=== PATIENT | female | born 1970 | race African-American/Black ===

== ENCOUNTER 2019-10-10 13:13 | Inpatient (IN) | payer MEDICAID ==
[~2019-10-10] VITALS: Ht 170.2 cm; Wt 139.8 kg
[~2019-10-10 13:13] MED LIST: ASPI325T17 PO; CARV3.1212 PO; CLON0.1T22 PO; CLON0.2T PO; HYDR-3240 PO; HYDR10TA4 PO; HYDR12.517 PO; LISI-170 PO; METF-366 PO; QUET200T4 PO; RISP0.253 PO
[2019-10-10] MEDS ORDERED: DOCUSATE 100 MG CAPSULE PO PRN (14:00)
[2019-10-10] MEDS ORDERED: ONDANSETRON ODT 4 MG PO PRN (14:00)
[2019-10-10] MEDS ORDERED: BISACODYL 10 MG SUPP PR PRN (14:00)
[2019-10-10] MEDS ORDERED: POLYETHYLENE GLYCOL 17 GM PACKET PO PRN (14:00)
[2019-10-10] MEDS: CARVEDILOL 25 MG TABLET PO SCH (17:59)
[2019-10-10] MEDS ORDERED: DEXTROSE 50%, 50ML SYRINGE IVPush PRN (18:00)
[2019-10-10] MEDS: INSULIN LISPRO 100 UNITS/ML, PEN SQ-INSULIN SCH ×2 (18:00→20:25)
[2019-10-10] MEDS ORDERED: DEXTROSE 4 GM TAB.CHEW PO PRN (18:00)
[2019-10-10] MEDS ORDERED: GLUCAGON 1 MG IM PRN (18:00)
[2019-10-10 18:05] VITALS: BP 178/98
[2019-10-10 18:12] VITALS: BP 178/98
[2019-10-10 19:00] VITALS: BP 123/56
[2019-10-10] MEDS ORDERED: ALBUTEROL SULFATE 2.5 MG/3 ML NPPB PRN (19:30)
[2019-10-10 20:06] LABS: BASOPHILS # (AUTO) 0.03 x10^3/uL (0-0.1); BASOPHILS % (AUTO) 1 % (0-1); EOSINOPHILS # (AUTO) 0.12 x10^3/uL (0-0.4); EOSINOPHILS % (AUTO) 2 % (1-7); LYMPHOCYTES # (AUTO) 1.01 x10^3/uL (1-3.4); LYMPHOCYTES % (AUTO) 18 % (22-44); MD NO; MEAN CORPUSCULAR HEMOGLOBIN 29.9 pg (27.0-34.8); MEAN CORPUSCULAR HGB CONC 32.9 g/dL (32.4-35.8); MEAN PLATELET VOLUME 9.3 fL (7.4-10.4); MONOCYTES # (AUTO) 0.46 x10^3/uL (0.2-0.8); MONOCYTES % (AUTO) 8 % (2-9); NEUTROPHILS # (AUTO) 3.94 x10^3/uL (1.8-6.8); NEUTROPHILS % (AUTO) 71 % (42-75); PLATELET COUNT 274 x10^3/uL (130-400); RED CELL DISTRIBUTION WIDTH 15.9 % (9.6-15.2)
[2019-10-10 20:19] LABS: ANION GAP 7 mmol/L (5-15); CALCIUM 9.2 mg/dL (8.5-10.1); CHLORIDE 105 mmol/L (98-107); CHOLESTEROL, TOTAL 181 mg/dL (140-239); CREATININE 1.21 mg/dL (0.55-1.02)
[2019-10-10] MEDS: OXCARBAZEPINE 150 MG TABLET PO SCH (20:24)
[2019-10-10] MEDS: QUETIAPINE 25MG TABLET PO SCH (20:24)
[2019-10-10] MEDS: DULOXETINE 30 MG CAPSULE.DR PO SCH (20:24)
[2019-10-10] MEDS: NITROFURANTOIN (MACROBID) 100 MG CAPSULE PO SCH (20:24)
[2019-10-10] MEDS: metFORMIN 500 MG TABLET PO SCH (20:24)
[2019-10-10] MEDS: ATORVASTATIN 80 MG TABLET PO SCH (20:24)
[2019-10-10] MEDS: PRAZOSIN 2 MG CAPSULE PO SCH (20:24)
[2019-10-10] MEDS: ALPRazolam 1MG TAB PO SCH (20:25)
[2019-10-10] MEDS: INSULIN GLARGINE 100 UNITS/ML, PEN SQ-INSULIN SCH (20:26)
[2019-10-10 20:45] LABS: FREE T4 (FREE THYROXINE) 1.07 ng/dL (0.76-1.46); HDL CHOL % 17 % (28-40); HDL CHOLESTEROL (DIRECT) 30 mg/dL (40-60); LDL CHOLESTEROL,CALCULATED 111 mg/dL (54-169); LDL/HDL RATIO 3.7 (0.5-3.0); TRIGLYCERIDES 202 mg/dL (50-200); VLDL CHOLESTEROL 40 mg/dL (0-25)
[2019-10-10] MEDS: SODIUM CHLORIDE FLUSH 10ML SYR IVF SCH (21:00)
[2019-10-10] MEDS ORDERED: LURASIDONE 20 MG TABLET PO SCH (21:00)
[2019-10-11] MEDS: ASPIRIN 81 MG TABLET EC PO SCH (05:56)
[2019-10-11 07:06] VITALS: BP 123/77
[2019-10-11] MEDS ORDERED: CARVEDILOL 12.5 MG TABLET ONE (08:03)
[2019-10-11] MEDS: NITROFURANTOIN (MACROBID) 100 MG CAPSULE PO SCH ×2 (08:07→21:10)
[2019-10-11] MEDS: INSULIN LISPRO 100 UNITS/ML, PEN SQ-INSULIN SCH ×4 (08:07→21:09)
[2019-10-11] MEDS: SPIRONOLACTONE 50 MG TABLET PO SCH (08:07)
[2019-10-11] MEDS: ALPRazolam 1MG TAB PO SCH ×3 (08:08→21:06)
[2019-10-11] MEDS: metFORMIN 500 MG TABLET PO SCH ×2 (08:08→21:05)
[2019-10-11] MEDS: THIAMINE 100MG TABLET PO SCH (08:08)
[2019-10-11] MEDS: FERROUS SULFATE 325 MG TABLET PO SCH (08:08)
[2019-10-11] MEDS: CLOPIDOGREL 75 MG TABLET PO SCH (08:08)
[2019-10-11] MEDS: OXCARBAZEPINE 150 MG TABLET PO SCH ×2 (08:09→21:05)
[2019-10-11] MEDS: ASCORBIC ACID 500 MG TABLET PO SCH (08:09)
[2019-10-11] MEDS: CARVEDILOL 25 MG TABLET PO SCH ×2 (08:10→16:39)
[2019-10-11] MEDS: SODIUM CHLORIDE FLUSH 10ML SYR IVF SCH (08:16)
[2019-10-11 19:20] VITALS: BP 120/77
[2019-10-11] MEDS: ATORVASTATIN 80 MG TABLET PO SCH (21:05)
[2019-10-11] MEDS: DULOXETINE 30 MG CAPSULE.DR PO SCH (21:05)
[2019-10-11] MEDS: QUETIAPINE 25MG TABLET PO SCH (21:05)
[2019-10-11] MEDS: PRAZOSIN 2 MG CAPSULE PO SCH (21:05)
[2019-10-11] MEDS: ACETAMINOPHEN 325 MG TABLET PO PRN (21:06)
[2019-10-11] MEDS: INSULIN GLARGINE 100 UNITS/ML, PEN SQ-INSULIN SCH (21:09)
[2019-10-11] MEDS ORDERED: LOPERAMIDE 2 MG CAPSULE PO PRN (22:00)
[2019-10-11] MEDS ORDERED: HYDROcodone/APAP 5/325 TABLET ONE (22:05)
[2019-10-11] MEDS ORDERED: LOPERAMIDE 2 MG CAPSULE PO ONE (22:30)
[2019-10-12] MEDS: ASPIRIN 81 MG TABLET EC PO SCH (05:54)
[2019-10-12] MEDS: INSULIN LISPRO 100 UNITS/ML, PEN SQ-INSULIN SCH ×4 (07:00→21:02)
[2019-10-12 07:35] VITALS: BP 133/78
[2019-10-12] MEDS: ALPRazolam 1MG TAB PO SCH ×3 (08:56→20:54)
[2019-10-12] MEDS: SPIRONOLACTONE 50 MG TABLET PO SCH (08:56)
[2019-10-12] MEDS: FERROUS SULFATE 325 MG TABLET PO SCH (08:56)
[2019-10-12] MEDS: OXCARBAZEPINE 150 MG TABLET PO SCH ×2 (08:57→20:54)
[2019-10-12] MEDS: CARVEDILOL 25 MG TABLET PO SCH ×2 (08:57→16:42)
[2019-10-12] MEDS: NITROFURANTOIN (MACROBID) 100 MG CAPSULE PO SCH ×2 (08:57→20:54)
[2019-10-12] MEDS: ASCORBIC ACID 500 MG TABLET PO SCH (08:57)
[2019-10-12] MEDS: CLOPIDOGREL 75 MG TABLET PO SCH (08:57)
[2019-10-12] MEDS: THIAMINE 100MG TABLET PO SCH (09:00)
[2019-10-12] MEDS: metFORMIN 500 MG TABLET PO SCH ×2 (09:00→21:08)
[2019-10-12 19:57] VITALS: BP 143/82
[2019-10-12 20:27] LABS: MICROSCOPIC AUTO
[2019-10-12 20:31] LABS: CULTURE INDICATED? YES
[2019-10-12] MEDS ORDERED: HYDROcodone/APAP 5/325 TABLET ONE (20:46)
[2019-10-12] MEDS: PRAZOSIN 2 MG CAPSULE PO SCH (20:53)
[2019-10-12] MEDS: ATORVASTATIN 80 MG TABLET PO SCH (20:53)
[2019-10-12] MEDS: DULOXETINE 30 MG CAPSULE.DR PO SCH (20:53)
[2019-10-12] MEDS: QUETIAPINE 25MG TABLET PO SCH (20:53)
[2019-10-12] MEDS: INSULIN GLARGINE 100 UNITS/ML, PEN SQ-INSULIN SCH (21:03)
[2019-10-13] MEDS: ASPIRIN 81 MG TABLET EC PO SCH (06:07)
[2019-10-13] MEDS: ACETAMINOPHEN 325 MG TABLET PO PRN (06:26)
[2019-10-13 07:22] VITALS: BP 150/90
[2019-10-13] MEDS: INSULIN LISPRO 100 UNITS/ML, PEN SQ-INSULIN SCH ×4 (07:30→20:03)
[2019-10-13] MEDS: CARVEDILOL 25 MG TABLET PO SCH ×2 (10:28→17:13)
[2019-10-13] MEDS: SPIRONOLACTONE 50 MG TABLET PO SCH (10:29)
[2019-10-13] MEDS: metFORMIN 500 MG TABLET PO SCH ×2 (10:29→20:02)
[2019-10-13] MEDS: FERROUS SULFATE 325 MG TABLET PO SCH (10:29)
[2019-10-13] MEDS: NITROFURANTOIN (MACROBID) 100 MG CAPSULE PO SCH ×2 (10:29→20:02)
[2019-10-13] MEDS: ASCORBIC ACID 500 MG TABLET PO SCH (10:30)
[2019-10-13] MEDS: THIAMINE 100MG TABLET PO SCH (10:30)
[2019-10-13] MEDS: OXCARBAZEPINE 150 MG TABLET PO SCH ×2 (10:31→20:02)
[2019-10-13] MEDS: CLOPIDOGREL 75 MG TABLET PO SCH (10:31)
[2019-10-13] MEDS: ALPRazolam 1MG TAB PO SCH ×3 (10:32→20:01)
[2019-10-13 19:15] VITALS: BP 151/91
[2019-10-13] MEDS: ATORVASTATIN 80 MG TABLET PO SCH (20:01)
[2019-10-13] MEDS: PRAZOSIN 2 MG CAPSULE PO SCH (20:01)
[2019-10-13] MEDS: DULOXETINE 30 MG CAPSULE.DR PO SCH (20:02)
[2019-10-13] MEDS: QUETIAPINE 25MG TABLET PO SCH (20:02)
[2019-10-13] MEDS: INSULIN GLARGINE 100 UNITS/ML, PEN SQ-INSULIN SCH (20:04)
[2019-10-14] MEDS: ASPIRIN 81 MG TABLET EC PO SCH (06:01)
[2019-10-14] MEDS: INSULIN LISPRO 100 UNITS/ML, PEN SQ-INSULIN SCH ×4 (07:00→20:01)
[2019-10-14 07:21] VITALS: BP 130/75
[2019-10-14] MEDS: metFORMIN 500 MG TABLET PO SCH ×3 (09:00→20:02)
[2019-10-14] MEDS: ALPRazolam 1MG TAB PO SCH ×3 (09:09→20:03)
[2019-10-14] MEDS: CARVEDILOL 25 MG TABLET PO SCH ×2 (09:09→16:00)
[2019-10-14] MEDS: SPIRONOLACTONE 50 MG TABLET PO SCH (09:09)
[2019-10-14] MEDS: NITROFURANTOIN (MACROBID) 100 MG CAPSULE PO SCH ×2 (09:09→20:01)
[2019-10-14] MEDS: ASCORBIC ACID 500 MG TABLET PO SCH (09:09)
[2019-10-14] MEDS: CLOPIDOGREL 75 MG TABLET PO SCH (09:09)
[2019-10-14] MEDS: OXCARBAZEPINE 150 MG TABLET PO SCH ×2 (09:09→20:03)
[2019-10-14] MEDS: THIAMINE 100MG TABLET PO SCH (09:09)
[2019-10-14] MEDS: FERROUS SULFATE 325 MG TABLET PO SCH (09:09)
[2019-10-14 16:01] VITALS: BP 171/105
[2019-10-14 18:07] VITALS: BP 148/80
[2019-10-14] MEDS: INSULIN GLARGINE 100 UNITS/ML, PEN SQ-INSULIN SCH (20:01)
[2019-10-14] MEDS: DULOXETINE 30 MG CAPSULE.DR PO SCH (20:02)
[2019-10-14] MEDS: PRAZOSIN 2 MG CAPSULE PO SCH (20:02)
[2019-10-14] MEDS: ATORVASTATIN 80 MG TABLET PO SCH (20:03)
[2019-10-14] MEDS: QUETIAPINE 25MG TABLET PO SCH (20:03)
[2019-10-15] VITALS (11 sets, daily range): BP systolic 144–168; BP diastolic 77–115
[2019-10-15 01:00] LABS: MICROSCOPIC NOT IND
[2019-10-15 01:06] LABS: CULTURE INDICATED? NO
[2019-10-15] MEDS: ASPIRIN 81 MG TABLET EC PO SCH (05:30)
[2019-10-15] MEDS: INSULIN LISPRO 100 UNITS/ML, PEN SQ-INSULIN SCH ×4 (07:00→20:02)
[2019-10-15] MEDS: SPIRONOLACTONE 50 MG TABLET PO SCH (08:42)
[2019-10-15] MEDS: CARVEDILOL 25 MG TABLET PO SCH ×2 (08:42→16:14)
[2019-10-15] MEDS: ASCORBIC ACID 500 MG TABLET PO SCH (08:42)
[2019-10-15] MEDS: CLOPIDOGREL 75 MG TABLET PO SCH (08:42)
[2019-10-15] MEDS: THIAMINE 100MG TABLET PO SCH (08:42)
[2019-10-15] MEDS: OXCARBAZEPINE 150 MG TABLET PO SCH ×2 (08:43→20:03)
[2019-10-15] MEDS: FERROUS SULFATE 325 MG TABLET PO SCH (08:43)
[2019-10-15] MEDS: metFORMIN 500 MG TABLET PO SCH ×2 (08:43→19:59)
[2019-10-15] MEDS: ALPRazolam 1MG TAB PO SCH ×3 (08:51→19:59)
--- NOTE | 2019-10-15 09:45 | NUR ---
BERTO BOURGEOIS - Fall Risk Medication(s) present and receiving anticoagulants. Signed: 10/15/19 at 0946 by Rip GUTIÉRREZ
[2019-10-15] MEDS: QUETIAPINE 25MG TABLET PO SCH (19:59)
[2019-10-15] MEDS: ATORVASTATIN 80 MG TABLET PO SCH (19:59)
[2019-10-15] MEDS: DULOXETINE 30 MG CAPSULE.DR PO SCH (19:59)
[2019-10-15] MEDS: PRAZOSIN 2 MG CAPSULE PO SCH (19:59)
[2019-10-15] MEDS: INSULIN GLARGINE 100 UNITS/ML, PEN SQ-INSULIN SCH (20:02)
[2019-10-16] MEDS: ASPIRIN 81 MG TABLET EC PO SCH (06:09)
[2019-10-16 07:38] VITALS: BP 152/93
[2019-10-16] MEDS: INSULIN LISPRO 100 UNITS/ML, PEN SQ-INSULIN SCH ×2 (08:23→11:25)
[2019-10-16] MEDS: THIAMINE 100MG TABLET PO SCH (08:40)
[2019-10-16] MEDS: SPIRONOLACTONE 50 MG TABLET PO SCH (08:40)
[2019-10-16] MEDS: ASCORBIC ACID 500 MG TABLET PO SCH (08:40)
[2019-10-16] MEDS: OXCARBAZEPINE 150 MG TABLET PO SCH (08:40)
[2019-10-16] MEDS: CLOPIDOGREL 75 MG TABLET PO SCH (08:40)
[2019-10-16] MEDS: CARVEDILOL 25 MG TABLET PO SCH (08:40)
[2019-10-16] MEDS: FERROUS SULFATE 325 MG TABLET PO SCH (08:40)
[2019-10-16] MEDS: ALPRazolam 1MG TAB PO SCH (08:40)
[2019-10-16] MEDS: metFORMIN 500 MG TABLET PO SCH (08:40)
[2019-10-16] MEDS ORDERED: OXCA150T18 PO (10:22)
== END 2019-10-16 13:25 | disposition home or self-care (01) | DRG 753 ==
LOC: 3E 16:54
PROVIDERS: ADMIT Psychiatry & Neurology Psychosomatic Medicine; ATTEND Psychiatry & Neurology Psychosomatic Medicine
PROC: 0T9B70Z Drainage of Bladder with Drainage Device, Via Natural or Artificial Opening (ICD-10-PCS; 2019-10-12)
PROC: 5A09357 Assistance with Respiratory Ventilation, Less than 24 Consecutive Hours, Continuous Positive Airway Pressure (ICD-10-PCS; principal; 2019-10-13)
PROC: 5A09357 Assistance with Respiratory Ventilation, Less than 24 Consecutive Hours, Continuous Positive Airway Pressure (ICD-10-PCS; 2019-10-14)
DX: F31.30 Bipolar disorder, current episode depressed, mild or moderate severity, unspecified (principal); E66.01 Morbid (severe) obesity due to excess calories; I48.91 Unspecified atrial fibrillation; E11.9 Type 2 diabetes mellitus without complications; G40.909 Epilepsy, unspecified, not intractable, without status epilepticus; Z68.42 Body mass index [BMI] 45.0-49.9, adult; E78.5 Hyperlipidemia, unspecified; F41.1 Generalized anxiety disorder; G47.00 Insomnia, unspecified; F17.210 Nicotine dependence, cigarettes, uncomplicated; G47.33 Obstructive sleep apnea (adult) (pediatric); I10 Essential (primary) hypertension; I25.10 Atherosclerotic heart disease of native coronary artery without angina pectoris; N39.0 Urinary tract infection, site not specified; J44.9 Chronic obstructive pulmonary disease, unspecified; Z79.82 Long term (current) use of aspirin; Z79.84 Long term (current) use of oral hypoglycemic drugs; Z79.899 Other long term (current) drug therapy; Z90.710 Acquired absence of both cervix and uterus; Z95.5 Presence of coronary angioplasty implant and graft
CPT/HCPCS: 71045; 80048; 80061; 81001; 81003; 82607; 82962; 84439; 84443; 85025; 86592; 87086; 93005; 94660; J1815